=== PATIENT | female | born 2000 | race Caucasian/White ===

== ENCOUNTER → 2024-04-09 | Outpatient (CLI) | payer BC ==
[2024-04-09 13:02] LABS: BASOPHILS % 0.6 % (0.0-2.0); EOSINOPHILS % 0.3 % (0.0-5.0); HEMATOCRIT. 36.2 % (36.0-48.0); HEMOGLOBIN. 12.2 g/dL (12.0-16.0); LYMPHOCYTES % 28.9 % (20.0-50.0); MEAN CORPUSCULAR HEMOGLOBIN 31.6 pg (28.0-32.0); MEAN CORPUSCULAR HGB CONC 33.6 g/dL (31.0-37.0); MEAN PLATELET VOLUME 9.6 fl (7.4-10.4); MONOCYTES % 5.4 % (2.0-8.0); NEUTROPHILS % 64.8 % (40.0-76.0); PLATELET 220 x1000/uL (130-400); RED BLOOD CELL COUNT 3.85 mill/uL (4.2-5.4); WHITE BLOOD COUNT 5.2 x1000/uL (4.5-11.0)
[2024-04-09 13:06] LABS: CLARITY URINE CLEAR (CLEAR); COLOR URINE YELLOW (YELLOW); GLUCOSE URINE NEGATIVE (NEGATIVE); KETONES URINE NEGATIVE (NEGATIVE); LEUKOCYTE ESTERASE URINE 3+ (NEGATIVE); NITRITE URINE NEGATIVE (NEGATIVE); OCCULT BLOOD URINE NEGATIVE (NEGATIVE); PROTEIN URINE NEGATIVE (NEGATIVE); SPECIFIC GRAVITY URINE 1.006 (1.005-1.030); UROBILINOGEN URINE 0.2 E.U./dL (0.2-1.0)
[2024-04-09 13:16] LABS: CHLORIDE 105 mEq/L (98-107); POTASSIUM 4.1 mEq/L (3.5-5.1); SODIUM 138 mEq/L (136-145)
[2024-04-09 13:17] LABS: CALCIUM 9.5 mg/dL (8.7-10.4); CARBON DIOXIDE 26 mEq/L (21-32)
[2024-04-09 13:20] LABS: CORTISOL 4.9 ucg/dL
[2024-04-09 13:22] LABS: CREATININE 0.6 mg/dL (0.6-1.0); GLUCOSE 83 mg/dL (70-105); IRON 95 ug/dL (50-170); TRIGLYCERIDE 73 mg/dL (0-150); URIC ACID 3.4 mg/dL (3.1-7.8)
[2024-04-09 13:23] LABS: C REACTIVE PROTEIN QUANT 0.2 mg/L (0.0-3.0); LDL CHOLESTEROL 137 mg/dL (5-100); UREA NITROGEN BLOOD 12 mg/dL (9-23)
[2024-04-09 13:24] LABS: ALANINE AMINOTRANSFERASE 9 IU/L (10-49); ALBUMIN 4.9 g/dL (3.2-4.8); ASPARTATE AMINOTRANSFERASE 19 IU/L (<34); BILIRUBIN DIRECT 0.2 mg/dL (<=3.0); BILIRUBIN TOTAL 0.7 mg/dL (0.1-1.0); CHOLESTEROL 187 mg/dL (<200); HDL CHOLESTEROL 54 mg/dL (>65); HEPATITIS B SURFACE AB < 3.1 mIU/mL (<10); PHOSPHORUS 4.3 mg/dL (2.5-4.9); PROTEIN TOTAL 7.4 g/dL (6.0-8.3); TOTAL IRON BINDING CAPACITY 359 ug/dl (250-425)
[2024-04-09 13:41] LABS: SQUAMOUS EPITHELIAL CELL URINE 1+ /lpf (RARE/1+)
[2024-04-09 13:42] LABS: BACTERIA URINE 1+; RBC URINE 0-2 /hpf (0-2); YEAST URINE NONE SEEN
[2024-04-09 13:58] LABS: HEPATITIS B CORE AB IGM NEGATIVE (Negative)
[2024-04-11 09:07] LABS: *T3 UPTAKE 28 % (24-39); ESTRADIOL 84.4 pg/mL (.); FOLICLE STIMULATING HORMONE 6.5 mIU/mL (.); HEPATITIS A ANTIBODY TOTAL Positive (Negative); HEPATITIS B CORE ANTIBODY Negative (Negative); LUTEINIZING HORMONE 8.9 mIU/mL (.); PROGESTERONE 0.1 ng/mL (.); VITAMIN D 25-OH 31.9 ng/mL (30.0-100.0)
[2024-04-11 14:13] LABS: TRANSFERRIN 300 mg/dL (192-364)
== END | disposition home or self-care (01) ==
LOC: LAB 12:07
PROVIDERS: ATTEND Internal Medicine
DX: I10 Essential (primary) hypertension (principal); D68.9 Coagulation defect, unspecified
CPT/HCPCS: 36415; 80053; 80061; 81003; 82024; 82248; 82306; 82533; 82670; 83001; 83002; 83036; 83540; 83550; 84100; 84144; 84403; 84443; 84466; 84479; 84550; 85025; 86140; 86704; 86705; 86706; 86708; 87338

== ENCOUNTER → 2024-05-27 | Outpatient (CLI) | payer BC ==
[2024-05-27 13:31] LABS: CLARITY URINE CLEAR (CLEAR); COLOR URINE YELLOW (YELLOW); GLUCOSE URINE NEGATIVE (NEGATIVE); KETONES URINE NEGATIVE (NEGATIVE); LEUKOCYTE ESTERASE URINE TRACE (NEGATIVE); NITRITE URINE NEGATIVE (NEGATIVE); OCCULT BLOOD URINE NEGATIVE (NEGATIVE); PH URINE 7.5 (4.5-8.0); PROTEIN URINE NEGATIVE (NEGATIVE); SPECIFIC GRAVITY URINE 1.005 (1.005-1.030); UROBILINOGEN URINE 0.2 E.U./dL (0.2-1.0)
[2024-05-27 13:53] LABS: SQUAMOUS EPITHELIAL CELL URINE 2+ /lpf (RARE/1+)
[2024-05-27 13:54] LABS: BACTERIA URINE 2+; RBC URINE NONE SEEN /hpf (0-2); WBC URINE 0-2 /hpf (0-2)
== END | disposition home or self-care (01) ==
LOC: LAB 12:16
PROVIDERS: ATTEND Internal Medicine
DX: Z00.00 Encounter for general adult medical examination without abnormal findings (principal)
CPT/HCPCS: 81003